=== PATIENT | female | born 1990 | race Caucasian/White ===

== ENCOUNTER 2018-12-25 05:48 | Inpatient (IN) ==
[2018-12-25] MEDS ORDERED: BUTORPHANOL 2 MG/ML VIAL IV PRN (05:59)
[2018-12-25] MEDS ORDERED: ONDANSETRON 4 MG/2 ML VIAL IV PRN (05:59)
[2018-12-25] MEDS ORDERED: LACTATED RINGERS 250 ML IV ONE (05:59)
[2018-12-25] MEDS ORDERED: LACTATED RINGERS 500 ML IV PRN (05:59)
[2018-12-25] MEDS ORDERED: MEPERIDINE 50 MG/1 ML VIAL IV PRN (05:59)
[2018-12-25 06:38] LABS: Basophils # 0.1 10*3/uL (0.0-0.2); Basophils % 0.4 % (0.0-0.8); Eosinophils # 0.1 10*3/uL (0.0-0.87); Hematocrit 33.4 VOL% (35.7-47.0); Hemoglobin 10.2 GM/DL (12.0-16.0); Immature Granulocytes % 1.2 %; Immature Granulocytes Absolute 0.14 #; Lymphocytes # 2.8 10*3/uL (1.4-4.0); Lymphocytes % 23.4 % (21.3-54.2); Mean Corpuscular HGB Conc 30.5 GM/DL (32-36); Mean Corpuscular Hemoglobin 26 PG (27-34); Mean Corpuscular Volume 84.1 FL (87-102); Mean Platelet Volume 11.3 FL (9.6-12.0); Monocytes # 0.8 10*3/uL (0.11-0.8); Monocytes % 6.5 % (1.7-12.7); NRBC # 0.02 10*3/uL; Neutrophils % 67.5 % (38.7-73.9); Platelet Count 205 T/CUMM (130-400); Red Blood Count 3.97 MC/CUMM (3.8-5.5); Red Cell Distribution Width 15.9 % (9.3-17.3); White Blood Count 11.9 T/CUMM (4-12)
[2018-12-25] MEDS: LACTATED RINGERS 1,000 ML IV SCH (06:40)
[2018-12-25] MEDS: OXYTOCIN/LR 20 UNIT/1,000 ML BAG IV SCH (07:41)
[2018-12-25] MEDS ORDERED: hydrOXYzine HCL 25 MG/1 ML VIAL IM PRN (08:52)
[2018-12-25] MEDS ORDERED: diphenhydrAMINE 50 MG/1 ML VIAL IV PRN ×2 (08:52)
[2018-12-25] MEDS ORDERED: ePHEDrine 50 MG/ML AMP IV PRN (08:52)
[2018-12-25] MEDS ORDERED: LACTATED RINGERS 1,000 ML IV ONE (08:52)
[2018-12-25] MEDS ORDERED: NALOXONE 0.4 MG/ML VIAL IV PRN (08:52)
[2018-12-25] MEDS ORDERED: CITRIC ACID/SODIUM CITRATE 30 ML UDCUP PO ONE (08:52)
[2018-12-25] MEDS ORDERED: FAMOTIDINE 20 MG/2 ML VIAL IV ONE (08:52)
[2018-12-25] MEDS ORDERED: METHYLERGONOVINE 0.2 MG/1 ML AMP ONE (14:16)
[2018-12-25] MEDS ORDERED: LIDOCAINE 1% 50 ML VIAL ONE (14:16)
[2018-12-25] MEDS ORDERED: CARBOPROST TROMETHAMINE 250 MCG/ML AMP IM ONE (15:03)
[2018-12-25 15:21] LABS: Cord Arterial Blood HCO3 18.8 MMOL/L
[2018-12-25 15:26] LABS: Cord Venous Blood HCO3 20.5 MMOL/L; Cord Venous Blood PCO2 38.6 MMHG; Cord Venous Blood PO2 27.3
[2018-12-25] MEDS ORDERED: OXYTOCIN/LR 20 UNIT/1,000 ML BAG IV ONE (18:25)
[2018-12-25] MEDS ORDERED: LANOLIN 50% CREAM 0.3 OZ TUBE TOP PRN (18:36)
[2018-12-25] MEDS ORDERED: RHO(D) IMMUNE GLOBULIN 300 MCG SYRINGE IM ONE (18:36)
[2018-12-25] MEDS ORDERED: BISACODYL 10 MG SUPP RECTAL PRN (18:36)
[2018-12-25] MEDS ORDERED: HYDROCORTISONE 2.5% RECTAL CREAM 30 GM TUBE TOP PRN (18:36)
[2018-12-25] MEDS ORDERED: DIPH/TET/ACEL PERT BOOSTER VACCINE 0.5 ML VIAL IM ONE (18:36)
[2018-12-25] MEDS ORDERED: BENZOCAINE 20%/MENTHOL 0.5% SPRAY 56 GM CAN TOP PRN (18:36)
[2018-12-25] MEDS ORDERED: WITCH HAZEL PADS 100/JAR TOP PRN (18:36)
[2018-12-25] MEDS ORDERED: oxyCODONE/ACETAMINOPHEN 5-325 MG TABLET PO PRN ×2 (18:36)
[2018-12-25] MEDS ORDERED: ACETAMINOPHEN 325 MG TABLET PO PRN (18:36)
[2018-12-25] MEDS ORDERED: MEASLES/MUMPS/RUBELLA VACCINE 0.5 ML VIAL SUBCUT ONE (18:36)
[2018-12-25] MEDS: IBUPROFEN 800 MG TABLET PO PRN (22:03)
[2018-12-25] MEDS: DOCUSATE SODIUM 100 MG CAPSULE PO SCH (22:03)
[2018-12-25] MEDS: LABETALOL 200 MG TABLET PO SCH (22:19)
[2018-12-26 05:24] LABS: Basophils % 0.3 % (0.0-0.8); Eosinophils # 0.1 10*3/uL (0.0-0.87); Eosinophils % 0.8 % (0.00-10.9); Immature Granulocytes % 0.9 %; Immature Granulocytes Absolute 0.11 #; Lymphocytes # 2.4 10*3/uL (1.4-4.0); Lymphocytes % 20.5 % (21.3-54.2); Mean Corpuscular Hemoglobin 25 PG (27-34); Mean Corpuscular Volume 83.9 FL (87-102); Mean Platelet Volume 11.9 FL (9.6-12.0); Monocytes # 0.9 10*3/uL (0.11-0.8); Monocytes % 7.8 % (1.7-12.7); NRBC # 0.02 10*3/uL; Neutrophils # 8.2 10*3/uL (1.4-7.4); Neutrophils % 69.7 % (38.7-73.9); Red Cell Distribution Width 16.2 % (9.3-17.3); White Blood Count 11.7 T/CUMM (4-12)
[2018-12-26 05:42] LABS: Hemoglobin 6.9 GM/DL (12.0-16.0); Red Blood Count 2.74 MC/CUMM (3.8-5.5)
[2018-12-26 05:43] LABS: Platelet Count 142 T/CUMM (130-400)
[2018-12-26] MEDS: IBUPROFEN 800 MG TABLET PO PRN ×2 (06:06→20:07)
[2018-12-26] MEDS ORDERED: SODIUM CHLORIDE 0.9% 1,000 ML IV PRN (07:41)
[2018-12-26] MEDS: LABETALOL 200 MG TABLET PO SCH ×2 (09:05→20:07)
[2018-12-26] MEDS: DOCUSATE SODIUM 100 MG CAPSULE PO SCH ×2 (09:05→20:07)
[2018-12-26 16:58] LABS: Hematocrit 27.1 VOL% (35.7-47.0)
[2018-12-26 17:00] LABS: Hemoglobin 8.4 GM/DL (12.0-16.0)
[2018-12-26] MEDS: OXYTOCIN/LR 20 UNIT/1,000 ML BAG IV SCH (18:53)
[2018-12-26] MEDS: fentaNYL 2 MCG/ROPIV 0.2% EPID 100 ML EPIDURAL SCH (18:54)
[2018-12-26] MEDS: LACTATED RINGERS 1,000 ML IV SCH (18:55)
[2018-12-26] MEDS ORDERED: RHO(D) IMMUNE GLOBULIN 300 MCG SYRINGE IM ONE (21:00)
[2018-12-27 07:56] VITALS: BP 117/59
[2018-12-27] MEDS: DOCUSATE SODIUM 100 MG CAPSULE PO SCH (08:54)
[2018-12-27] MEDS: LABETALOL 200 MG TABLET PO SCH (08:55)
== END 2018-12-27 13:35 | disposition home or self-care (01) | DRG 807 ==
LOC: N.LDOUT 05:48 → N.LD 05:51 → N.OB 21:38
PROVIDERS: ADMIT Obstetrics & Gynecology; ATTEND Obstetrics & Gynecology